=== PATIENT | male | born 1980 | race Caucasian/White ===

== ENCOUNTER 2021-06-10 11:05 | Emergency (ER) | payer OTHER, SELFPAY ==
[2021-06-10 11:30] VITALS: BP 134/73; PULSE 61; RESP 20; TEMP 36.2; O2SAT 100
--- NOTE | 2021-06-10 14:19 | ED.GENADULT ---
HPI - General Adult General Chief complaint: Unspecified Stated complaint: fb esophagus Time Seen by Provider: 06/10/21 12:27 Source: patient Mode of arrival: ambulatory Limitations: no limitations History of Present Illness HPI narrative: 40-year-old male Only past medical history is hypertension Here because of inability to swallow Patient reports that yesterday he [place] and had 2 bites of a bratwurst and then was unable to swallow anything else and subsequently had vomiting He reported that [facility] [place], and he is not sure what they did there other than start an IV and we cannot readily access those records, but he reported that he could drink water before he left However when he got home this morning he could not drink water anymore so he came over here Related Data Allergies Allergy/AdvReac Type Severity Reaction Status Date / Time No Known Allergies Allergy Unknown Verified 06/10/21 12:30 Review of Systems Review of Systems: All systems reviewed & are unremarkable except as noted in HPI and below Constitutional: Constitutional: Reports no additional constitutional complaints, Reports anorexia, Denies chills, Denies fever(s) and Denies headache(s) Eyes: Eyes: Reports no additional eye complaints and Denies change in vision ENT: Denies headache(s) and Denies sore throat Cardiovascular: Cardiovascular: Denies chest pain and Denies dyspnea Respiratory: Respiratory: Denies cough and Denies dyspnea Gastrointestinal: Gastrointestinal: Denies abdominal pain, Reports belching, Reports dyspepsia, Denies diarrhea, Reports nausea, Reports odynophagia and Reports vomiting Genitourinary: Genitourinary: Denies dysuria and Denies urinary frequency Musculoskeletal: Musculoskeletal: Denies deformity, Denies arthralgias, Denies joint swelling and Denies numbness Integumentary/Breasts: Skin/Breast: Denies rash and Denies wounds Neurologic: Denies headache(s) Psychiatric: Psychiatric: Reports no additional psychiatric complaints Endocrine: Endocrine: Reports no additional endocrine complaints Hematologic/Lymphatic: Hematologic/Lymphatic: Reports no additional hematologic/lymphatic complaints Allergic/Immunologic: Allergic/Immunologic: Reports no additional allergic/immunologic complaints Exam Const: General: cooperative and no acute distress Orientation/consciousness: patient oriented x3 (alert) HENMT: Head: normal to inspection, normocephalic and atraumatic Ears: external ears normal General nose exam: no epistaxis Eyes: Conjunctivae: conjunctivae normal EOM: EOMs intact bilaterally Neck: Neck: normal visual inspection, supple and no JVD Resp: Effort & Inspection: normal respiratory effort and not labored Auscultation: clear to auscultation bilaterally, no rales, no rhonchi and no wheezes Cardio: Rate: regular rate Rhythm: regular rhythm Heart sounds: no murmurs GI: GI Palp: Yes Soft to palpation and No Tenderness to palpation present (GI) Skin: General skin exam: normal color and no rashes or lesions noted Neuro: General: patient oriented x3 (alert) Speech: normal speech Extrem: General: normal to inspection and no pedal edema Psych: Affect: normal affect Course Course Emergency Course: Spoke with Dr. Marcos, Dr. Conner, Dr. Nikolas Braden and none are available to scope him so we will start calling around to see if anybody has GI coverage this weekend Spoke to Dr. Tyler in [place] and they can accommodate him there and will be transferred there with a friend driving him Vital Signs Vital signs: Vital Signs Temperature 36.2 C L 06/10/21 11:30 Pulse Rate 61 06/10/21 11:30 Respiratory Rate 20 06/10/21 11:30 Blood Pressure 134/73 06/10/21 11:30 Pulse Oximetry 100 06/10/21 11:30 Temperature 36.2 C L 06/10/21 11:30 Pulse Rate 61 06/10/21 11:30 Respiratory Rate 20 06/10/21 11:30 Blood Pressure 134/73 06/10/21 11:
[2021-06-10 15:25] VITALS: BP 124/86; PULSE 84; RESP 18; O2SAT 100
== END 2021-06-10 15:32 | disposition short-term general hospital (02) ==
PROVIDERS: Emergency Provider Emergency Medicine
DX: T18.128D Food in esophagus causing other injury, subsequent encounter (principal); X58.XXXD Exposure to other specified factors, subsequent encounter; I10 Essential (primary) hypertension
CPT/HCPCS: 99282

== ENCOUNTER 2023-08-20 21:09 | Emergency (ER) | payer OTHER, SELFPAY ==
--- NOTE | ~2023-08-20 | CT_ITS ---
EXAMINATION: CTA chest PE protocol DATE: 08/20/2023 22:14 INDICATION: chest pain TECHNIQUE: Computed tomography angiography (CTA) of the chest was performed with 100 mL Omnipaque-350 intravenous contrast timed to evaluate the pulmonary arteries. Coronal maximum intensity projection 3D-reconstructions were created by the technologist. The dose-length product (DLP) was 512.99 mGy-cm. Automated exposure control and iterative reconstruction technique were employed. COMPARISON: X-ray chest, same date. FINDINGS: Lung parenchyma and airways: Dependent atelectasis. Scattered sub-6 mm pulmonary nodules. Calcified l eft upper lobe nodule. Pleura: Unremarkable. Thoracic inlet, axillae and chest wall: Unremarkable. Thoracic aorta: Normal. Mediastinum: Normal. Heart and pericardium: Normal. Coronary artery calcifications: Absent. Upper abdomen: No significant finding. Bones: No acute osseous finding. Pulmonary arteries: Study quality: Adequate. No pulmonary emboli detected. IMPRESSION: No CT evidence of acute pulmonary embolus. No acute intrathoracic process detected. Multiple sub-6 mm pulmonary nodules, likely benign and infectious/inflammatory, no routine follow-up recommended unless the patient is at high risk, in which case consider an optional CT at 3 months Reviewed, dictated and finalized at location [facility]. [facility] [employer]
--- NOTE | ~2023-08-20 | XR_ITS ---
EXAMINATION: XR chest 2V Exam Date/Time: 08/20/2023 21:19 LICENSED CERTIFIED ORTHOTIST HISTORY: chest pain Comparison: 05/11/2011. RESULT: Lines, tubes, and devices: None. Lungs and pleura: Clear. Granulomatous calcifications. Cardiomediastinal silhouette: Stable. Other: No acute osseous or upper abdominal finding. IMPRESSION: No acute cardiopulmonary process. Reviewed, dictated and finalized at location K. NSED CERTIFIED ORTHOTIST
--- NOTE | 2023-08-20 21:10 | ECG_ITS ---
Measurements Intervals [place] Rate: 79 P: 42 CT: 159 QRS: -18 QRSD: 106 T: 40 QT: 349 QTc: 402 Interpretive Statements SINUS RHYTHM INCOMPLETE RIGHT BUNDLE BRANCH BLOCK BASELINE ARTIFACT- V5-V6 BORDERLINE ECG NO PREVIOUS ECG AVAILABLE FOR COMPARISON Electronically Signed On 08-21-2023 6:53:09 MECHANICAL SERVICE REPRESENTATIVE by Ata Owens D.O.
[2023-08-20 21:11] VITALS: BP 136/94; PULSE 82; RESP 15; TEMP 36.7; O2SAT 99
[2023-08-20] MEDS: ASPIRIN 81 MG CHEWABLE TABLET 324 MG PO (21:21)
[2023-08-20 21:23] LABS: Basophils Absolute Auto 0.1 K/mm3 (0.0-0.1); Basophils Percent Auto 0.6 % (0.2-1.2); Eosinophils Absolute Auto 0.3 K/mm3 (0-0.3); Eosinophils Percent Auto 2.9 % (0-4.4); Hematocrit 44.8 % (42.0-52.0); Hemoglobin 15.5 g/dL (14.0-18.0); Immature Granulocyte Absolute 0.03 K/mm3 (0.00-0.031); Immature Granulocyte Percent A 0.3 % (0-0.5); Lymphocytes Absolute Auto 2.24 K/mm3 (0.9-3.2); Mean Corpuscular HGB Conc 34.6 g/dl (32-36); Mean Corpuscular Hemoglobin 33.1 pg (26-34); Mean Corpuscular Volume 95.7 fl (80-100); Mean Platelet Volume 8.9 fl (7.4-10.4); Monocytes Absolute Auto 0.8 K/mm3 (0.1-0.6); Neutrophils Absolute Auto 7.8 K/mm3 (1.3-6.7); Neutrophils Percent Auto 69.2 % (45.5-73.1); Platelet Count Result 230 k/mm3 (150-375); Red Blood Count 4.68 M/mm3 (4.6-6.20); Red Cell Distribution Width 11.7 % (11.5-14.5); White Blood Count 11.2 K/mm3 (4.5-10.0)
[2023-08-20 21:40] LABS: INR 0.9; Prothrombin Time 12.6 Seconds (11.1-14.7)
[2023-08-20 21:41] LABS: Partial Thromboplastin Time 25.8 SECONDS (22.3-36.8)
[2023-08-20 21:42] LABS: Alanine Aminotransferase 25 U/L (6-50); Albumin Level 4.8 g/dL (3.5-5.1); Alkaline Phosphatase 76 U/L (38-126); Anion Gap 9 mmol/L (8-16); Aspartate Amino Transferase 34 U/L (17-59); Bilirubin,Total 0.6 mg/dL (0.2-1.3); Blood Urea Nitrogen 10 mg/dL (9-20); Calcium 9.1 mg/dL (8.4-10.2); Carbon Dioxide 29 mmol/L (22-30); Chloride 101 mmol/L (98-107); Estimated CRCL calculation 95 ml/min; Estimated Glomerular Filt Rate > 60; Glucose 85 mg/dL (65-110); Lipase 105 U/L (23-300); Potassium 3.9 mmol/L (3.4-5.0); Sodium 139 mmol/L (137-145)
[2023-08-20 21:49] LABS: Troponin I < 0.012 ng/mL (0.000-0.034)
[2023-08-20] MEDS: MORPHINE SULFATE (*CRX) 4 MG/ML INJ IV PUSH (21:55)
--- NOTE | 2023-08-20 21:55 | ED.CHESTPAIN ---
HPI - Chest Pain General Chief Complaint: Chest Pain Stated Complaint: chest pain Time Seen by Provider: 08/20/23 21:26 History of Present Illness HPI narrative: patient presents to emergency department chest wall pain. Pain started earlier this afternoon. He has pain with deep breath and movement. He is feeling very short of breath because he cannot get a breath due to the pain. Denies having had symptoms like this in the past. Overall he has a history of hypertension but no cardiac disease. Patient appears uncomfortable on exam with decreased breath sounds diffusely. Denies history of COPD or asthma Related Data Allergies Allergy/AdvReac Type Severity Reaction Status Date / Time No Known Allergies Allergy Unknown Verified 08/20/23 21:20 Review of Systems Review of Systems: negative except for what is documented in [facility] Family History Family History (System 01/18/22 @ 10:56 by Bulmaro Cheng) Grandparent Family history of cardiovascular disease Mother Family history of malignant neoplasm of breast in first degree relative Social History Social History (System 01/18/22 @ 10:56 by Bulmaro Cheng) Smoking status: Former smoker Second hand tobacco smoke exposure: No Smoking end date: 09/30/18 Alcohol intake: current Exam Narrative: GENERAL: Well-appearing, well-nourished, and in no acute distress. uncomfortable HEAD: Normocephalic, atraumatic. EYES: PERRLA and EOMI. ENT: Nares clear, no rhinorrhea or epistaxis. Mucous membranes moist. NECK: Supple. CHEST: Clear to auscultation. No respiratory distress. slight decreased breath sounds diffusely HEART: Regular rate and rhythm. ABDOMEN: Soft, nontender, nondistended. EXTREMITIES: Normal range of motion. No edema. SKIN: Warm, dry, no rash. NEURO: No focal deficits. Alert and oriented x3. PSYCH: Normal mood and affect. Course Course Emergency Course: differential diagnosis includes but not limited to CAD, costochondritis, pleurisy, pneumonia, pulmonary edema, PE Telemetry ordered due to chest pain to evaluate for dysrhythmias. Evaluated by myself. Rhythm NS Rate 80 Vital Signs Vital signs: Vital Signs Temperature 36.7 C 08/20/23 21:11 Pulse Rate 82 08/20/23 21:11 Respiratory Rate 15 08/20/23 21:11 Blood Pressure 136/94 H 11/21/23 21:11 Pulse Oximetry 99 08/20/23 21:11 Oxygen Delivery Room Air 08/20/23 21:11 Temperature 36.7 C 08/20/23 21:11 Pulse Rate 83 08/20/23 23:32 Respiratory Rate 15 08/20/23 23:32 Blood Pressure 111/78 08/20/23 23:32 Pulse Oximetry 96 08/20/23 23:32 Oxygen Delivery Room Air 08/20/23 21:11 MDM - Chest Pain MDM Narrative Medical decision making narrative: labs including troponin unremarkable. CT chest negative for any acute pathology except for incidental findings of pulmonary nodules. Will plan for repeat troponin and DC if normal. repeat troponin normal. will d/c with follow up Lab Data 08/20/23 21:16 08/20/23 21:16 Labs: Lab Results 08/20/23 08/21/23 Range/Units 21:16 00:08 WBC 11.2 H (4.5-10.0) K/mm3 RBC 4.68 (4.6-6.20) M/mm3 Hgb 15.5 (14.0-18.0) g/dL Hct 44.8 (42.0-52.0) % MCV 95.7 (80-100) fl MCH 33.1 (26-34) pg MCHC 34.6 (32-36) g/dl RDW 11.7 (11.5-14.5) % Plt Count 230 (150-375) k/mm3 MPV 8.9 (7.4-10.4) fl Immature Gran % (Auto) 0.3 (0-0.5) % Neut % (Auto) 69.2 (45.5-73.1) % Lymph % (Auto) 20.0 (18.3-44.2) % [place] % (Auto) 7.0 (2.6-8.5) % Eos % (Auto) 2.9 (0-4.4) % Baso % (Auto) 0.6 (0.2-1.2) % Lymph # (Auto) 2.24 (0.9-3.2) K/mm3 [place] # (Auto) 0.8 H (0.1-0.6) K/mm3 Eos # (Auto) 0.3 (0-0.3) K/mm3 Baso # (Auto) 0.1 (0.0-0.1) K/mm3 Abs Immat Gran (auto) 0.03 (0.00-0.031) K/mm3 Absolute Neuts (auto) 7.8 H (1.3-6.7) K/mm3 Absolute Nucleated RBC 0.0 (0.0-0.012) K/mm3 Nucleated RBC % 0.0 (0.0-0.2) % PT 12.6
[2023-08-20] MEDS: KETOROLAC 30 MG/ML VIAL (*BKC) IV PUSH (23:29)
[2023-08-20 23:32] VITALS: BP 111/78; PULSE 83; RESP 15; O2SAT 96
[2023-08-21 00:41] LABS: Troponin I < 0.012 ng/mL (0.000-0.034)
[2023-08-21 01:01] VITALS: BP 107/76; PULSE 83; RESP 15; O2SAT 97
[2023-08-21] MEDS: BELLADONNA ALK/PHENOB ELIX 10 ML, MAG HYDROX/ALUMINUM HYD/SIMETH 30 ML, LIDOCAINE HCL 2... PO (01:05)
== END 2023-08-21 01:26 | disposition home or self-care (01) ==
PROVIDERS: Emergency Provider Emergency Medicine
DX: R07.89 Other chest pain (principal); R91.1 Solitary pulmonary nodule
CPT/HCPCS: 36415; 71046; 71275; 80053; 83690; 84484; 85025; 85610; 85730; 93005; 96374; 96375; 99284; A9270; J1885; J2270; Q9967